=== PATIENT | female | born 1985 | race Caucasian/White ===

== ENCOUNTER 2021-12-01 09:26 | Outpatient (REF) | payer OTHER, SELFPAY ==
[2021-12-01 10:10] LABS: MANUAL DIFF FLAG NO
[2021-12-01 10:14] LABS: Basophils Percent Auto 0.6 % (0-2); Eosinophils Absolute Auto 0.1 X10*3/uL (0.0-0.4); Eosinophils Percent Auto 1.9 % (0-4); Hematocrit 38.7 % (37.0-47.0); Hemoglobin 12.7 g/dl (12.0-16.0); Imm Gran Abs Auto 0.01 X10*3/uL (0.00-0.03); Imm Gran Pct Auto 0.2 % (0.0-0.4); Mean Corpuscular HGB Conc 32.8 g/dl (31.0-35.0); Mean Corpuscular Hemoglobin 29.3 pg (27.0-33.0); Mean Corpuscular Volume 89.2 fL (80.0-98.0); Mean Platelet Volume 10.6 fL (9.4-12.3); Monocytes Absolute Auto 0.2 X10*3/uL (0.1-1.2); Monocytes Percent Auto 4.4 % (2-11); Neutrophils Absolute Auto 2.9 x10*3/uL (2.0-8.3); Neutrophils Percent Auto 54.9 % (45-73); Platelet Count 248 X10*3/uL (160-400); Red Blood Count 4.34 X10*6/uL (4.20-5.50); Red Cell Distribution Width 14.1 % (11.0-16.0); White Blood Count 5.2 X10*3/uL (4.8-10.8)
[2021-12-01 10:42] LABS: Alanine Aminotransferase 16 U/L (0-31); Albumin Level 4.3 g/dL (3.5-5.0); Alkaline Phosphatase 58 U/L (39-117); Anion Gap 11 (12-20); Aspartate Amino Transferase 18 U/L (5-31); Bilirubin Total 0.4 mg/dL (0.0-1.0); Blood Urea Nitrogen 23 mg/dL (9-16); Calcium 9.2 mg/dL (8.4-10.2); Carbon Dioxide 26 mmol/L (22-29); Chloride 106 mmol/L (96-108); Cholesterol 153 mg/dL; Estimated Glomerular Filt Rate > 60; Glucose Random 90 mg/dL (60-115); HDL Cholesterol 44 mg/dL; LDL Cholesterol Calculated 92 mg/dl; Potassium 4.3 mmol/L (3.3-5.1); Sodium 139 mmol/L (135-145); Total Protein 6.7 g/dL (6.5-8.0); Triglycerides 85 mg/dL
[2021-12-01 11:03] LABS: Thyroid Stimulating Hormone 1.29 uIU/mL (0.32-4.0)
== END 2021-12-01 09:27 | disposition home or self-care (01) ==
LOC: HO.10HDL 09:26
PROVIDERS: Visit Provider Internal Medicine
DX: Z00.00 Encounter for general adult medical examination without abnormal findings (principal); F32.9 Major depressive disorder, single episode, unspecified; R00.2 Palpitations; Z63.4 Disappearance and death of family member
CPT/HCPCS: 36415; 80053; 80061; 84443; 85025

== ENCOUNTER 2022-01-01 15:27 | Emergency (ER) | payer OTHER, SELFPAY ==
[2022-01-01 16:51] VITALS: BP 117/69; PULSE 66; RESP 16; TEMP 36.9; O2SAT 98; BMI 29.5
--- NOTE | 2022-01-01 16:59 | ECG_ITS ---
Test Reason : dizzyness Blood Pressure : / mmHG Vent. Rate : 072 BPM Atrial Rate : 072 BPM P-R Int : 172 ms QRS Dur : 086 ms QT Int : 370 ms P-R-T Axes : 060 056 026 degrees QTc Int : 405 ms Normal sinus rhythm Normal ECG No previous ECGs available Referred By: Generic ED Physician Electronically Signed By:Kilo Garcia
== END 2022-01-01 19:26 | disposition left against medical advice (07) ==
PROVIDERS: Emergency Provider Emergency Medicine
DX: R42 Dizziness and giddiness (principal); R00.2 Palpitations
CPT/HCPCS: 93005; 99283

== ENCOUNTER 2023-01-05 18:03 | Emergency (ER) | payer OTHER, SELFPAY ==
--- NOTE | 2023-01-05 18:57 | ED_ITS ---
HPI - General Adult General Chief complaint: Extremity Injury, Upper Stated complaint: ?High blood pressure Time Seen by Provider: 01/05/23 19:03 Source: patient Mode of arrival: ambulatory Limitations: no limitations History of Present Illness HPI narrative: Patient is a 37 year old assigned female at with no reported medical history presenting to the emergency department today with left sided neck pain and concern for elevated blood pressure. Patient states that she woke up this morning with left sided neck pain that is worse with movement and feels as though it is radiating down into her left shoulder. Patient states that she took her blood pressure while home and felt like it was high. Patient denies any dizziness, lightheadedness, abdominal pain, nausea, vomiting, fever, chills, blurry vision, double vision, loss of vision, chest pain, difficulty breathing, shortness of breath, back pain, night sweats, pain with urination, increased urinary frequency, increased urinary urgency, blood in her urine or stool, syncope or a near syncopal episode, recent trauma or falls, bowel incontinence, bladder incontinence, bowel retention, bladder retention, or any other complaints at this time. Location: neck Severity: mild Severity scale (1-10): 3 Quality: aching and dull Pain Consistency: constant Relieving factors: immobilization Exacerbating factors: movement Associated symptoms: denies other symptoms Treatments prior to arrival: none Related Data Allergies Allergy/AdvReac Type Severity Reaction Status Date / Time diphenhydramine Allergy Rash Verified 01/05/23 19:01 [From Benadryl] Review of Systems Constitutional: Constitutional: Reports no additional constitutional complaints, Denies chills, Denies fever(s) and Denies night sweats Eyes: Eyes: Reports no additional eye complaints, Denies blurry vision, Denies change in vision, Denies diplopia, Denies eye discharge, Denies loss of vision and Denies eye pain ENT: Denies dizziness and Reports neck pain Cardiovascular: Cardiovascular: Reports no additional cardiovascular complaints, Denies chest pain, Denies lightheadedness, Denies Loss of Consciousness and Denies dyspnea Respiratory: Respiratory: Reports no additional respiratory complaints and Denies dyspnea Gastrointestinal: Gastrointestinal: Reports no additional gastrointestinal complaints, Denies abdominal pain, Denies melena, Denies hematochezia, Denies change in bowel habits and Denies change in stool character Genitourinary: Genitourinary: Denies hematuria, Denies urinary frequency, Denies dysuria, Denies urinary incontinence, Denies urinary hesitancy and Denies urinary urgency Musculoskeletal: Musculoskeletal: Reports no additional musculoskeletal complaints, Reports neck pain, Denies numbness and Denies tingling Neurologic: Denies dizziness, Denies loss of vision, Denies numbness and Denies tingling Psychiatric: Psychiatric: Reports no additional psychiatric complaints Endocrine: Endocrine: Reports no additional endocrine complaints Hematologic/Lymphatic: Hematologic/Lymphatic: Reports no additional hematologic/lymphatic complaints Allergic/Immunologic: Allergic/Immunologic: Reports no additional allergic/immunologic complaints PMFSH Past Medical History Attestation statement: The following information was validated with the patient. Source: old records reviewed and nursing notes reviewed Social History Social History Advance Directives: No Advance Directives Information Provided: No Physical Exam ED Vital Signs: BMI result Body Mass Index 31.1 Const General: cooperative, no acute distress, alert and awake Nutritional Appearance: well nourished Orientation/consciousness: patient oriented x3 Limitations: no limitations HENMT Head: Yes normal to inspection and Yes atraumatic Ears: hearing grossly normal bilaterally and external ears normal General nose exam: Normal external nose present, no nasal discharge noted and no epistaxis Face and sinus: Yes normal facial exam, No abrasion and No laceration Mouth: Normal oral and palatal mucosa present, no drooling and no muffled voice Eyes General: appearance normal, both eyes and all related structures Periorbital: periorbital findings normal Eyelids: Yes eyelids normal Conjunctivae: conjunctivae normal Pupils: Equal, round and reactive pupils present EOM: EOMs intact bilaterally Neck Neck: Yes normal visual inspection, Yes full ROM and Yes no lymphadenopathy Chest Chest palpation & inspection: normal inspection of the chest Resp Effort & Inspection: normal respiratory effort and able to speak in complete sentences GI Inspection: Yes normal to inspection General: Yes no CVA tenderness Back/Spine/Pelvis Back: no CVA tenderness Cervical Spine: normal cervical lordosis and cervical ROM normal Thoracic/Lumbar Spine: thoraco-lumbar ROM normal Neuro General: patient oriented x3 and moves all extremities Cranial nerves: Yes Equal, round and reactive pupils present Cognition (Neuro): normal cognition Motor exam (neuro): 5/5 motor strength present throughout Sensory Exam: Normal double simultaneous stimulation for sensation Coordination: [id number] test normal Extrem General: Yes normal to inspection, Yes full ROM and Yes capillary refill normal Psych Appearance: grossly normal Mental Status: mental status grossly normal Affect: normal affect Attitude: cooperative Thought process: Normal thought process present Thought content: Normal thought content present Insight: Good insight present (Psych) Medical Decision Making Medical Decision Making MDM Narrative: Patient is a 37 year old assigned female at with no reported medical history presenting to the emergency department today with left neck pain and concern over her blood pressure. Patient's physical exam was unremarkable. Patient's blood pressure was normal. Patient's clinical presentation is most consistent with cervical radiculopathy. I explained my physical exam findings to the patient. I answered all questions asked by the patient. I offered the patient muscle relaxers and steroids however, she declined both of these things. I stressed the importance of the patient taking her medication as prescribed. I stressed the importance of the patient following up with her primary care provider. I stressed the importance of the patient returning to the emergency department immediately if her symptoms were to worsen or if she were to develop any dizziness, shortness of breath, difficulty breathing, chest pain, blurry vision, loss of vision, nausea, vomiting, abdominal pain, fever, chills, back pain, or any other complaints. Patient verbalized agreement and understanding with this treatment plan and discharge. Differential Diagnosis Differential Diagnoses: The differential diagnosis associated with the presentation includes Cervical radiculopathy Neck strain Neck sprain Neck pain Hypertension Prescription Management I considered prescription management with: Pain Medication (patient was offered a muscle relaxer and an oral steroid but she declined both of these.) Discharge Plan Discharge Clinical Impression: Cervical radiculopathy Patient Disposition: Home, Self-Care Instructions: Cervical Radiculopathy (ED) Additional Instructions: Follow up with your primary care provider. Return to the emergency department immediately if your symptoms worsen or if you develop any dizziness, shortness of breath, difficulty breathing, chest pain, blurry vision, loss of vision, nausea, vomiting, abdominal pain, fever, chills, back pain, or any other complaints. Referrals: Robyn Rivero MD [Primary Care Provider] - Interventions: ED Discharge Assessment Last Done: 01/05/23 19:06 Discharge Date/Time: 01/05/23 19:06 Print Language: [place]
[2023-01-05 18:58] VITALS: BP 120/74; PULSE 67; RESP 16; TEMP 36.3; O2SAT 99; BMI 31.1
== END 2023-01-05 19:06 | disposition home or self-care (01) ==
LOC: HO.ED 19:07
PROVIDERS: Emergency Provider Emergency Medicine; PCP Internal Medicine
DX: M54.12 Radiculopathy, cervical region (principal)
CPT/HCPCS: 99282

== ENCOUNTER 2023-01-09 15:02 | Outpatient (REF) | payer OTHER, SELFPAY ==
[2023-01-09 15:15] LABS: MANUAL DIFF FLAG NO
[2023-01-09 15:41] LABS: Basophils Percent Auto 0.5 % (0-2); Eosinophils Absolute Auto 0.2 X10*3/uL (0.0-0.4); Eosinophils Percent Auto 2.1 % (0-4); Hematocrit 37.5 % (37.0-47.0); Hemoglobin 12.5 g/dl (12.0-16.0); Imm Gran Abs Auto 0.02 X10*3/uL (0.00-0.03); Imm Gran Pct Auto 0.3 % (0.0-0.4); Lymphocytes Absolute Auto 2.6 X10*3/uL (1.2-4.9); Lymphocytes Percent Auto 33.1 % (20-40); Mean Corpuscular HGB Conc 33.3 g/dl (31.0-35.0); Mean Corpuscular Hemoglobin 28.9 pg (27.0-33.0); Mean Corpuscular Volume 86.8 fL (80.0-98.0); Mean Platelet Volume 10.2 fL (9.4-12.3); Monocytes Absolute Auto 0.3 X10*3/uL (0.1-1.2); Monocytes Percent Auto 4.3 % (2-11); Neutrophils Absolute Auto 4.7 x10*3/uL (2.0-8.3); Neutrophils Percent Auto 59.7 % (45-73); Platelet Count 280 X10*3/uL (160-400); Red Blood Count 4.32 X10*6/uL (4.20-5.50); Red Cell Distribution Width 13.6 % (11.0-16.0); White Blood Count 7.9 X10*3/uL (4.8-10.8)
[2023-01-09 17:15] LABS: Thyroid Stimulating Hormone 1.46 uIU/mL (0.32-4.0)
[2023-01-16 10:38] LABS: Anti Nuclear Antibody Screen NEGATIVE (NEGATIVE)
== END 2023-01-09 15:03 | disposition home or self-care (01) ==
LOC: HO.LAB 15:02
PROVIDERS: PCP Internal Medicine; Visit Provider Internal Medicine
DX: J45.909 Unspecified asthma, uncomplicated (principal); L30.8 Other specified dermatitis; L50.5 Cholinergic urticaria; L63.8 Other alopecia areata
CPT/HCPCS: 36415; 84443; 85025; 86038

== ENCOUNTER 2023-03-01 07:16 | Emergency (ER) | payer OTHER, SELFPAY ==
[2023-03-01 07:21] VITALS: BP 136/78; PULSE 78; RESP 19; TEMP 36.6; O2SAT 97; BMI 32.7
--- NOTE | 2023-03-01 08:42 | ED_ITS ---
HPI - URI/Sore Throat General Chief Complaint: Upper Respiratory Symptoms Stated Complaint: asthma / sob Time Seen by Provider: 03/01/23 08:30 Source: patient Mode of arrival: ambulatory Limitations: no limitations History of Present Illness HPI Narrative: 37-year-old female with history significant for asthma presenting to the ED today for productive cough, SOB, and wheezing x3 days. Has been taking Claritin and doing nebulizer treatments at home without relief, last treatment 6 hours ago. States this feels similar to an asthma exacerbation. Has tested negative for COVID at home twice. reports her children have also been sick. denies fever, chills, headache, ear pain, sore throat, chest pain, nausea/ vomiting, abdominal pain. Related Data Previous Rx's Medication Instructions Recorded prednisone 50 mg tablet 50 mg PO DAILY 5 days #5 tabs 03/01/23 Allergies Allergy/AdvReac Type Severity Reaction Status Date / Time diphenhydramine Allergy Rash Verified 03/01/23 07:21 [From Benadryl] fosphenytoin Allergy Unknown Verified 03/01/23 07:29 Review of Systems Review of Systems: Constitutional: No fever, No chills, No fatigue, No malaise ENT/Mouth: No ear pain, No hearing loss, No nasal congestion, No sinus pain, No rhinorrhea, No sore throat Eyes: No eye pain, No swelling, No redness, No vision changes, No foreign body, No discharge Cardio: No chest pain, No palpitations, No dyspnea on exertion, No orthopnea, No edema Respiratory: + SOB, + cough, + sputum, + wheezing, No dyspnea, No hemoptysis GI: No nausea, No vomiting, No hematemesis, No abdominal pain, No diarrhea, No constipation, No hematochezia, No melena : No irregular bleeding, No dysuria, No frequency, No urgency MSK: No back pain, No neck pain, No joint pain, No myalgias Skin: No skin lesions, No rashes Neuro: No weakness, No numbness, No paresthesias, No LOC, No dizziness, No headache Psych: No anxiety/panic, No depression, No SI/HI, No AH/VH Heme/Lymph: No bruising, No bleeding, No lymphadenopathy Endocrine: No Polyuria, No Polydipsia, No Temperature Intolerance All other systems reviewed and are negative. [facility] Past Medical History Attestation statement: The following information was validated with the patient. Source: old records reviewed and nursing notes reviewed Social History Social History Advance Directives: No Physical Exam Vital Signs: Vital Signs: Last Vital Signs Temp 98 F 03/01/23 07:21 Pulse 77 03/01/23 09:46 Resp 18 03/01/23 09:46 BP 136/78 03/01/23 07:21 Pulse Ox 97 03/01/23 07:21 O2 Del Method Room Air 03/01/23 07:21 BMI result Body Mass Index 32.7 Vital signs stable General: Nontoxic appearing. NAD Skin: Warm and dry. No rashes or lesions. Head: Normocephalic, atraumatic. EENT: EAC patent. Hearing is intact b/l. Conjunctiva clear. PERRLA. EOM intact. Moist mucous membranes. Controlling secretions. Uvula midline. posterior oropharynx without erythema, edema, exudate. Speaking in complete sentences. Neck: Supple without LAD. Normal ROM. Trachea midline. Cardiac: Chest wall symmetric. RRR. S1 and S1 appreciated. No MRG. No JVD. Lungs: Expiratory wheezes bilaterally, R>L. Normal respiratory effort without accessory muscle use. Abdomen: No visible lesions or scars. Soft, non-tender, non-distended. No rebound tenderness or guarding. Normoactive BS x4. No hepatomegaly, no splenomegaly. Spine: No midline spinous tenderness. No deformity or step off. Ext: Upper and lower extremities atraumatic. Full ROM throughout.Capillary refill <2 seconds in all extremities. Pulses 2+ equal b/l. No edema, cyanosis, or clubbing. Neuro: Alert and oriented x3. Normal speech. CN 2-12 grossly intact. Strength 5/5 intact throughout. Sensation intact to light touch. NV intact distally. Reflexes 2+ bilaterally. Psych: Appropriate mood and affect. Responds appropriately to questions. Course Course Course Narrative: 5993-- The patient states minimal resolution of symptoms with albuterol treatment per RT bronch protocol. Mag and solumedrol ordered > will re-evaluate symptoms > Patient's serology negative for COVID, flu, strep throat, RSV > Unlikely infectious in etiology, likely acute asthma exacerbation. 1053-- On re-evaluation patients breathing improved with Solu-Medrol and magnesium. States that she would like to go home. Her vital signs are still stable. Lungs with minimal wheezes to the right base, improved. Otherwise clear to auscultation. Discussed sending patient home on steroids. Patient agreeable to plan. Discussed strict return precautions. All questions answered. Stable for discharge. Medications Administered Discontinued Medications Generic Name Dose Route Start Last Admin Trade Name Mioq PRN Reason Stop Dose Admin Albuterol Sulfate 2.5 mg 03/01/23 08:52 03/01/23 08:55 Albuterol Sulfate (0.083%) 2.5 Mg/3 Ml Vial.Neb INHALE 03/01/23 08:53 2.5 mg ONCE ONE Administration Albuterol Sulfate 2.5 mg 03/01/23 09:44 03/01/23 09:45 Albuterol Sulfate (0.083%) 2.5 Mg/3 Ml Vial.Neb INHALE 03/01/23 09:45 2.5 mg ONCE ONE Administration Magnesium Sulfate 2 gm in 50 mls @ 25 mls/hr 03/01/23 09:45 03/01/23 10:26 Magnesium Sulfate/H2o IV 03/01/23 11:44 Infused ONCE ONE Infusion Methylprednisolone Sodium Succinate 125 mg 03/01/23 09:45 03/01/23 10:09 Methylprednisolone Sod Succ 125 Mg/2 Ml Vial IVPUSH 03/01/23 09:46 125 mg ONCE ONE Administration Medical Decision Making Medical Decision Making MDM Narrative: 37-year-old female with history significant for asthma presenting to the ED today for productive cough and wheezing x3 days. vital signs stable. Afebrile. EAC clear. Moist mucous membranes. no lymphadenopathy. Posterior oropharynx without erythema, edema, exudates. Controlling secretions. Speaking in full se ntences. Lungs with expiratory wheezes, R>L. RRR. Concern for asthma exacerbation vs viral syndrome. Unlikely pneumonia, pneumothorax, strep throat, PLANISHER, epiglotitis or retropharyngeal abscess. Plan: albuterol tx, serology Differential Diagnosis Differential Diagnoses: The differential diagnosis associated with the presentation includes 37-year-old female with history significant for asthma presenting to the ED today for productive cough and wheezing x3 days. vital signs stable. Afebrile. EAC clear. Moist mucous membranes. no lymphadenopathy. Posterior oropharynx without erythema, edema, exudates. Controlling secretions. Speaking in full sentences. Lungs with expiratory wheezes, R>L. RRR. Concern for asthma exa cerbation vs viral syndrome. Unlikely pneumonia, pneumothorax, strep throat, PLANISHER, epiglotitis or retropharyngeal abscess. Admission/Observation Not indicated. Lab Data MDM Lab Attestation statement: I reviewed the patient's lab results. See above course narrative. Labs: Lab Results 03/01/23 Range/Units 09:03 Influenza Type A (PCR) NEGATIVE (Negative) Influenza Type B (PCR) NEGATIVE (Negative) RSV RNA Qual (PCR) NEGATIVE (Negative) SARS-CoV-2 RNA (RT-PCR) NEGATIVE (Negative) S. pyogenes GrpA JONG Negative (Negative) External Record Review External record reviewed: Inpatient record Prescription Management I considered prescription management with: Other ( steroid) Chronic Conditions Patient?s care impacted by: Other (asthma) Discharge Plan Discharge Clinical Impression: Asthma Patient Disposition: Home, Self-Care Instructions: Asthma (ED) Additional Instructions: You tested negative for COVID, flu, RSV, and strep throat. This is likely an asthma exacerbation. I am sending you home with a short dose of steroids. take this as prescribed for your asthma. Do not miss any doses. Return to the emergency department if your symptoms persist or worsen. Follow-up with your primary care provider this week. Prescriptions: New prednisone 50 mg tablet 50 mg PO DAILY 5 Days Qty: 5 0RF Referrals: [facility] [place] Family Medicine [Provider Group] Stand Alone Forms: Work/School Release Interventions: ED Discharge Assessment Last Done: 03/01/23 11:11 Discharge Date/Time: 03/01/23 11:11
[2023-03-01] MEDS: Albuterol Sulfate (0.083%) 2.5 MG/3 ML VIAL.NEB INHALE ×2 (08:55→09:45)
[2023-03-01 08:56] VITALS: PULSE 78; RESP 18; O2SAT 98
[2023-03-01 09:21] LABS: IDNOW Serial# 6674DD1D; Strep A Nucleic Acid Negative (Negative)
[2023-03-01 09:46] VITALS: PULSE 77; RESP 18; O2SAT 97
[2023-03-01 09:46] LABS: Influenza A PCR NEGATIVE (Negative); Influenza B PCR NEGATIVE (Negative); Resp Syncy Virus RNA Qual PCR NEGATIVE (Negative); SARS COV2 PCR INHOUSE NEGATIVE (Negative)
[2023-03-01] MEDS: Magnesium Sulfate/H2O 2 GM/50 ML PIGGYBACK IV (10:08)
[2023-03-01] MEDS: methylPREDNISolone Sod Succ 125 MG/2 ML VIAL IVPUSH (10:09)
== END 2023-03-01 11:11 | disposition home or self-care (01) ==
PROVIDERS: Physician Assistant Medical; Emergency Provider Emergency Medicine; PCP Internal Medicine
DX: J45.909 Unspecified asthma, uncomplicated (principal); Z20.822 Contact with and (suspected) exposure to COVID-19; Z20.828 Contact with and (suspected) exposure to other viral communicable diseases; R06.02 Shortness of breath
CPT/HCPCS: 0241U; 87651; 94640; 96365; 96375; 99283; 99284; J2930; J3475

== ENCOUNTER 2023-03-02 12:46 | Emergency (ER) | payer OTHER, SELFPAY ==
--- NOTE | ~2023-03-02 | US_ITS ---
EXAMINATION: US VENOUS ULTRASOUND WITH DOPPLER LOWER EXTREMITY, BILATERAL CLINICAL INFORMATION: Bilateral lower extremity swelling COMPARISON: None available. TECHNIQUE: Ultrasound of the deep veins is performed from the hip to the calf with compression sonography and color and pulse Doppler assessment. Spectral analysis with color-flow imaging is performed. FINDINGS: RIGHT: There is normal venous compression and respiratory variation and augmented flow. The visualized common femoral, superficial femoral,, profunda femoral, popliteal, trifurcation region and calf veins show no evidence of deep venous thrombosis. There is no significant popliteal fossa cyst. LEFT: There is normal venous compression and respiratory variation and augmented flow. The visualized common femoral, superficial femoral, profunda femoral, popliteal, the trifurcation region, peroneal and posterior tibial veins show no evidence of deep venous thrombosis. There is no significant popliteal fossa cyst. If the patient's symptoms persist, followup ultrasound in 5 days 7 days might be of value to exclude proximal propagation from a non-visualized calf vein. US/US venous duplex LE BI IMPRESSION: No DVT demonstrated in the bilateral lower extremities.
[2023-03-02 12:51] VITALS: BP 128/70; PULSE 81; RESP 16; TEMP 36.6; O2SAT 97; BMI 33.1
--- NOTE | 2023-03-02 12:54 | ED.GENADULT ---
HPI - General Adult General Chief complaint: Extremity Problem Stated complaint: sent back to the ER/ seen yesterday Time Seen by Provider: 03/02/23 15:15 Source: patient Mode of arrival: ambulatory Limitations: no limitations History of Present Illness HPI narrative: 37 yold female presents to the ED bilateral leg swelling that occurred this mornign and improving on her own. patient was told to come to the ED for evaliation. patient was seen here yesterday for asthma. patient deneis any chest pain or shorntess of breath. patient states no recent trauma, fever, or chills. Patient denies any pleurisy, recent long travel, or recent surgery. Related Data Previous Rx's Medication Instructions Recorded prednisone 50 mg tablet 50 mg PO DAILY 5 days #5 tabs 03/01/23 Allergies Allergy/AdvReac Type Severity Reaction Status Date / Time diphenhydramine Allergy Rash Verified 03/01/23 07:21 [From Benadryl] fosphenytoin Allergy Unknown Verified 03/01/23 07:29 [facility] Social History Social History Advance Directives: No Advance Directives Information Provided: No Physical Exam ED Vital Signs: Vital Signs - 24 hr 03/02/23 12:51 Temperature 97.9 F Pulse Rate 81 Respiratory Rate 16 Blood Pressure 128/70 Pulse Oximetry 97 Oxygen Delivery Method Room Air BMI result Body Mass Index 33.1 Const General: cooperative, healthy appearing, comfortable, no acute distress, well developed, alert and awake Orientation/consciousness: oriented to person, oriented to place, oriented to time and patient oriented x3 HENMT Head: Yes normal to inspection, Yes No palpable skull fracture present, Yes normocephalic, Yes atraumatic and No abrasion Eyes General: appearance normal, both eyes and all related structures Neck Neck: Yes normal visual inspection, Yes full ROM, Yes no lymphadenopathy, Yes no meningeal signs, Yes trachea midline, Yes supple, No anterior neck swelling and No tender Chest Chest palpation & inspection: normal inspection of the chest and normal palpation of entire chest wall Resp Effort & Inspection: normal respiratory effort and able to speak in complete sentences Auscultation: clear to auscultation bilaterally Cardio Jugular venous distension: no JVD Heart sounds: S1 normal heart sound present and S2 normal heart sound present GI Inspection: Yes normal to inspection and No abdominal wall ecchymosis Palpation (GI): Soft to palpation, not firm, nontender, no guarding and not rigid General: No CVA tenderness and Yes no CVA tenderness Back/Spine/Pelvis Back: no CVA tenderness, No CVA tenderness and No back tenderness Skin Other: intact General skin exam: no rashes or lesions noted and elasticity normal Neuro General: oriented to person, oriented to place, oriented to time, patient oriented x3, gait normal, tone normal, moves all extremities, Normal light touch and pain sensation, no meningeal signs, no focal motor deficits, CN's II-XI intact bilaterally and normal sensation to monofilament Extrem Other: bilateral lower extremities negative for swelling, or calf tenderness. Positive for mild pitting edema. Negative for ecchymosis, crepitus, or deformities. Negative for erythema. Vascular / Neuro/motor exam intact. Psych Appearance: grossly normal, well kempt and not disheveled Course Course Course Narrative: This is a rapid medical exam: Additional HPI, ROS, PE not included below will be deferred to primary provider. Patient is a 37-year-old female presenting to the emergency department with complaint of bilateral leg pain and swelling after being seen in this ED yesterday for an asthma exacerbation. Received two albuterol treatments as well as solu-medrol and magnesium in the ED. [place] tired upon returning home. States she received a call from someone in the follow up center this morning and was told to return to the ED given her ongoing leg pain and swelling. Plan: labs Medical Decision Making Medical Decision Making [facility] Narrative: 37-year-old female presents to ED for bilateral lower extremity swelling that resolved on its own. Patient denies any chest pain, shortness of breath, pleurisy, recent long travel, recent surgery, recent trauma, cough or coughing up blood. labs normal. BNP negative for heart failure. Ultrasound bilaterally negative for DVT. Patient is safe for discharge Differential Diagnosis Differential Diagnoses: The differential diagnosis associated with the presentation includes ( CHF, cellulitis, DVT, erythema nodosum, fracture, carpal tunnel syndrome) Admission/Observation Consideration of admission/observation: Escalation of care including admission/observation considered Lab Data [facility] Lab Attestation statement: I reviewed the patient's lab results. 03/02/23 13:59 03/02/23 13:59 Labs: Lab Results 03/02/23 Range/Units 13:59 WBC 9.7 (4.8-10.8) X10*3/uL RBC 4.18 L (4.20-5.50) X10*6/uL Hgb 12.2 (12.0-16.0) g/dl Hct 35.9 L (37.0-47.0) % MCV 85.9 (80.0-98.0) fL MCH 29.2 (27.0-33.0) pg MCHC 34.0 (31.0-35.0) g/dl RDW 13.7 (11.0-16.0) % Plt Count 266 (160-400) X10*3/uL MPV 10.0 (9.4-12.3) fL Immature Gran % (Auto) 0.3 (0.0-0.4) % Neut % (Auto) 90.6 H (45-73) % Lymph % (Auto) 8.4 L (20-40) % [place] % (Auto) 0.6 L (2-11) % Eos % (Auto) 0.0 (0-4) % Baso % (Auto) 0.1 (0-2) % Lymph # (Auto) 0.8 L (1.2-4.9) X10*3/uL [place] # (Auto) 0.1 (0.1-1.2) X10*3/uL Eos # (Auto) 0.0 (0.0-0.4) X10*3/uL Baso # (Auto) 0.0 (0.0-0.2) X10*3/uL Abs Immat Gran (auto) 0.03 (0.00-0.03) X10*3/uL Absolute Neuts (auto) 8.8 H (2.0-8.3) x10*3/uL Absolute Nucleated RBC 0.000 (0.0-0.012) X10*3/uL Nucleated RBC % (auto) 0.0 (0.0-0.2) /100WBC Smear Tech's Comments VERIFIED Sodium 139 (135-145) mmol/L Potassium 4.3 (3.3-5.1) mmol/L Chloride 107 (96-108) mmol/L Carbon Dioxide 25 (22-29) mmol/L Anion Gap 11 L (12-20) BUN 16 (9-16) mg/dL Creatinine 0.72 (0.5-1.4) mg/dL Estim Creat Clear Calc 104.2 Estimated GFR > 60 Random Glucose 104 (60-115) mg/dL Calcium 9.7 (8.4-10.2) mg/dL Total Bilirubin 0.2 (0.0-1.0) mg/dL AST 28 (5-31) U/L ALT 28 (0-31) U/L Alkaline Phosphatase 67 (39-117) U/L B-Natriuretic Peptide 48 (<100) pg/mL Total Protein 7.3 (6.5-8.0) g/dL Albumin 4.4 (3.5-5.0) g/dL Independent Interpretation I performed an independent interpretation of an: Ultrasound Radiology Impression Discussion of test interpretation with radiology: I have reviewed the radiologist's reading. External Record Review External record reviewed: Other (Prior ED visit) Tests considered The following testing was considered but not selected: xrays Discharge Plan Discharge Clinical Impression: Lower extremity edema Patient Disposition: Home, Self-Care Instructions: Leg Edema (ED) Additional Instructions: please follow-up with your primary care provider. Return to the ED immediately for swelling, calf pain, chest pain, shortness of breath, weakness, dizziness, coughing up blood, fever, chills, redness, blue spot discoloration, or any other concerning symptoms. Prescriptions: No Action prednisone 50 mg tablet 50 mg PO DAILY 5 Days Qty: 5 0RF Interventions: ED Discharge Assessment Last Done: 03/02/23 16:51 Discharge Date/Time: 03/02/23 16:51 Print Language: Spanish
[2023-03-02 14:15] LABS: Basophils Percent Auto 0.1 % (0-2); Hematocrit 35.9 % (37.0-47.0); Hemoglobin 12.2 g/dl (12.0-16.0); Imm Gran Abs Auto 0.03 X10*3/uL (0.00-0.03); Imm Gran Pct Auto 0.3 % (0.0-0.4); Lymphocytes Absolute Auto 0.8 X10*3/uL (1.2-4.9); Lymphocytes Percent Auto 8.4 % (20-40); MANUAL DIFF FLAG SCAN; Mean Corpuscular Hemoglobin 29.2 pg (27.0-33.0); Mean Corpuscular Volume 85.9 fL (80.0-98.0); Monocytes Absolute Auto 0.1 X10*3/uL (0.1-1.2); Monocytes Percent Auto 0.6 % (2-11); Neutrophils Absolute Auto 8.8 x10*3/uL (2.0-8.3); Neutrophils Percent Auto 90.6 % (45-73); Platelet Count 266 X10*3/uL (160-400); Red Blood Count 4.18 X10*6/uL (4.20-5.50); Red Cell Distribution Width 13.7 % (11.0-16.0); SCAN SMEAR FLAG 1; White Blood Count 9.7 X10*3/uL (4.8-10.8)
[2023-03-02 14:31] LABS: Alanine Aminotransferase 28 U/L (0-31); Albumin Level 4.4 g/dL (3.5-5.0); Alkaline Phosphatase 67 U/L (39-117); Anion Gap 11 (12-20); Aspartate Amino Transferase 28 U/L (5-31); Bilirubin Total 0.2 mg/dL (0.0-1.0); Blood Urea Nitrogen 16 mg/dL (9-16); Calcium 9.7 mg/dL (8.4-10.2); Carbon Dioxide 25 mmol/L (22-29); Chloride 107 mmol/L (96-108); Creatinine Clr Calc Pharmacy 104.2; Estimated Glomerular Filt Rate > 60; Glucose Random 104 mg/dL (60-115); Potassium 4.3 mmol/L (3.3-5.1); Sodium 139 mmol/L (135-145); Total Protein 7.3 g/dL (6.5-8.0)
[2023-03-02 14:40] LABS: SLIDE REVIEW VERIFIED
[2023-03-02 16:10] LABS: B Type Natriuretic Peptide 48 pg/mL (<100)
[2023-03-02 16:39] VITALS: BP 128/76; PULSE 74; RESP 18; TEMP 36.6; O2SAT 98
== END 2023-03-02 16:51 | disposition home or self-care (01) ==
PROVIDERS: Physician Assistant; Registered Nurse Emergency; Emergency Provider Emergency Medicine Emergency Medical Services; PCP Internal Medicine
DX: R60.0 Localized edema (principal); M79.605 Pain in left leg; M79.604 Pain in right leg
CPT/HCPCS: 36415; 80053; 83880; 85025; 93970; 99282; 99284

== ENCOUNTER 2023-06-22 16:36 | Emergency (ER) | payer OTHER, SELFPAY ==
[2023-06-22 17:11] VITALS: BP 145/90; PULSE 84; RESP 18; TEMP 37.3; O2SAT 99; BMI 31.1
--- NOTE | 2023-06-22 17:13 | ED.GENADULT ---
HPI - General Adult General Chief complaint: Extremity Injury, Upper Stated complaint: Muscle spasm on L arm Time Seen by Provider: 06/22/23 19:21 Source: patient, RN notes reviewed and old records reviewed Mode of arrival: ambulatory Limitations: no limitations History of Present Illness HPI narrative: 38-year-old female presents for evaluation of left posterior shoulder pain that radiates to her left arm She describes this as ?muscle spasms. ? Her symptoms started about 1 week ago She denies any specific trauma or heavy lifting/twisting injury that would have incited pain Patient states that she saw her PCP 3 days ago and was given a prescription for cyclobenzaprine for ?muscle spasms. ? She states that when she takes cyclobenzaprine 10 mg before bed ?I feel out of it and sometimes more awake at 3:00 a.m.. ? Patient reports that she gets twitching and spasms into her left upper arm as well as her left trapezius area Denies any headaches. She states that she initially had neck pain but no longer has neck pain She reports that she has full range of motion of the neck Patient reports that she sleeps with 3 pillows at night Related Data Previous Rx's Medication Instructions Recorded prednisone 50 mg tablet 50 mg PO DAILY 5 days #5 tabs 03/01/23 lidocaine 5 % topical patch 1 patch topical DAILY #15 ea 06/22/23 (DermacinRx Lidocan) Allergies Allergy/AdvReac Type Severity Reaction Status Date / Time diphenhydramine Allergy Rash Verified 06/22/23 17:11 [From Benadryl] fosphenytoin Allergy Unknown Verified 06/22/23 17:11 Review of Systems Constitutional: Constitutional: Denies chills and Denies headache(s) ENT: Denies headache(s) and Denies neck pain Cardiovascular: Cardiovascular: Denies chest pain Musculoskeletal: Musculoskeletal: Reports limited range of motion, Reports muscle cramps, Denies neck pain, Reports numbness, Reports radiating pain into limb and Reports stiffness Neurologic: Denies headache(s) and Reports numbness PMFSH Social History Social History Advance Directives: No Advance Directives Information Provided: No Physical Exam ED Vital Signs: Vital Signs - 24 hr 06/22/23 17:11 06/22/23 19:41 Temperature 99.1 F Pulse Rate 84 58 Respiratory Rate 18 14 Blood Pressure 145/90 H 110/71 Pulse Oximetry 99 99 Oxygen Delivery Method Room Air Room Air BMI result Body Mass Index 31.1 Const General: healthy appearing, comfortable, no acute distress, alert and awake Nutritional Appearance: well nourished Orientation/consciousness: patient oriented x3 HENMT Head: Yes normocephalic and Yes atraumatic Eyes Eyelids: Yes eyelids normal Conjunctivae: conjunctivae normal Sclerae: sclerae normal Corneas: corneas normal Pupils: Equal, round and reactive pupils present EOM: EOMs intact bilaterally Neck Neck: Yes full ROM Resp Effort & Inspection: normal respiratory effort, no audible wheezes and not labored Back/Spine/Pelvis Other: No C-spine tenderness or paraspinous muscle tenderness. Skin General skin exam: elasticity normal Neuro General: patient oriented x3 Cranial nerves: Yes Equal, round and reactive pupils present and Yes Bilaterally intact EOM present Cognition (Neuro): normal cognition Extrem Other: Patient has tenderness over the left trapezius muscle group without any obvious deformities. She has full range of motion left shoulder actively. She is able to left the left upper extremity up to shoulder level without any difficulty. Course Course Course Narrative: This is an RME: Additional HPI, ROS, PE not included below will be deferred to primary provider. 38-year-old female presents with atraumatic left upper extremity pain, reports intermittent swelling to left upper extremity. PCP prescribed muscle relaxers and had her referred to a chiropractor. No chest pain or shortness of breath. Medications Administered Discontinued Medications Generic Name Dose Route Start Last Admin Trade Name Mioq PRN Reason Stop Dose Admin Ketorolac Tromethamine 30 mg 06/22/23 17:14 06/22/23 19:32 Ketorolac Tromethamine 30 Mg/Ml Vial IM 06/22/23 17:15 30 mg ONCE ONE Administration Lidocaine 1 patch 06/22/23 17:14 06/22/23 19:31 Lidocaine 4 % Patch Adh..Patch TRANSDERMA 06/22/23 17:15 1 patch ONCE ONE Administration Protocol Medical Decision Making Medical Decision Making MDM Narrative: 38-year-old female presents for evaluation of ?muscle spasms. ? Her exam is reassuring, she has slow range of motion to left shoulder. She does have some tenderness the left trapezius muscle group and left triceps area. She has no headache, neck pain, no neuro deficits. Will treat symptomatically with lidocaine patches. She was encouraged to attempt to try to reduce the amount of pillows she has that night as this may be the cause of her muscle spasms. I also recommend that she can try the cyclobenzaprine by cutting the pills in half to 5 mg before bed Differential Diagnosis Differential Diagnoses: The differential diagnosis associated with the presentation includes Muscle spasms Cervical radiculopathy Spasmodic torticollis Shoulder pain Osteoarthritis Rotator cuff injury Discharge Plan Discharge Clinical Impression: Spasmodic torticollis Patient Disposition: Home, Self-Care Instructions: Spasmodic Torticollis (ED) Additional Instructions: I recommend that you try to reduce the amount of pillows use at night as this may put your neck and awkward position bleeding to muscle spasms You may try cutting the cyclobenzaprine in half to take only 5 mg before bed Continue to use ibuprofen as needed for pain. You may use lidocaine patches before bed Do not put heating pads over any medicated patches Follow-up with your primary doctor Prescriptions: New lidocaine [DermacinRx Lidocan] 5 % adhesive patch,medicated 1 patch topical DAILY Qty: 15 0RF Rx Instructions: leave on most painful area for up to 12 hrs No Action prednisone 50 mg tablet 50 mg PO DAILY 5 Days Qty: 5 0RF Interventions: ED Discharge Assessment Last Done: 06/22/23 19:58 Discharge Date/Time: 06/22/23 19:59
[2023-06-22 19:41] VITALS: BP 110/71; PULSE 58; RESP 14; O2SAT 99
== END 2023-06-22 19:59 | disposition home or self-care (01) ==
PROVIDERS: Emergency Provider Emergency Medicine; PCP Internal Medicine
DX: G24.3 Spasmodic torticollis (principal); M79.602 Pain in left arm
CPT/HCPCS: 96372; 99283; 99284; J1885

== ENCOUNTER 2023-07-03 11:40 | Emergency (ER) | payer OTHER, SELFPAY ==
--- NOTE | ~2023-07-03 | XR_ITS ---
EXAMINATION: XR CHEST CLINICAL INFORMATION: Dyspnea. Covid positive. COMPARISON: None available. TECHNIQUE: 2 views of the chest were obtained. FINDINGS: Cardiac silhouette is normal in size. The lungs are well aerated. There is no lobar consolidation. No pleural effusion or pneumothorax. No acute osseous abnormality. XR/XR chest 2V IMPRESSION: No acute pulmonary pathology.
[2023-07-03 11:43] VITALS: BP 122/61; PULSE 88; RESP 16; TEMP 37.1; O2SAT 95; BMI 32.2
--- NOTE | 2023-07-03 11:43 | ED_ITS ---
HPI - General Adult General Chief complaint: Asthma Stated complaint: Trouble breathing, covid positive Time Seen by Provider: 07/03/23 11:53 Source: patient and RN notes reviewed Mode of arrival: ambulatory Limitations: no limitations History of Present Illness HPI narrative: This is a 38-year-old female, with a history of asthma, presenting to the emergency department with complaints of difficulty breathing with dry cough which started yesterday. She states that she took it at home COVID test which was positive. Her family is also positive for COVID. She uses a updraft at her home without any relief. Reporting some fevers MD complaint: Shortness of breath Onset (ago): day(s) Relieving factors: none Exacerbating factors: none Associated symptoms: cough, fever/chills and shortness of breath Treatments prior to arrival: none Related Data Previous Rx's Medication Instructions Recorded prednisone 50 mg tablet 50 mg PO DAILY 5 days #5 tabs 03/01/23 lidocaine 5 % topical patch 1 patch topical DAILY #15 ea 06/22/23 (DermacinRx Lidocan) prednisone 20 mg tablet 40 mg (2 x 20 mg) PO DAILY 4 days 07/03/23 #8 tabs Allergies Allergy/AdvReac Type Severity Reaction Status Date / Time diphenhydramine Allergy Rash Verified 06/22/23 17:11 [From Benadryl] fosphenytoin Allergy Unknown Verified 06/22/23 17:11 Review of Systems Review of Systems: Yes all other systems are reviewed and are negative Constitutional: Constitutional: Reports as per [facility] Social History Social History Advance Directives: No Physical Exam ED Vital Signs: Vital Signs - 24 hr 07/03/23 11:43 07/03/23 12:14 07/03/23 12:53 Temperature 98.8 F Pulse Rate 88 77 104 H Respiratory Rate 16 22 H 18 Blood Pressure 122/61 129/81 Pulse Oximetry 95 99 Oxygen Delivery Method Room Air Room Air BMI result Body Mass Index 32.2 Const General: cooperative, comfortable and no acute distress Orientation/consciousness: patient oriented x3 Limitations: no limitations HENMT Head: Yes normal to inspection, Yes normocephalic and Yes atraumatic Ears: hearing grossly normal bilaterally General nose exam: Normal external nose present Face and sinus: Yes normal facial exam Mouth: Normal oral and palatal mucosa present, oropharynx normal and moist mucous membranes Throat: Yes posterior oropharynx normal Eyes General: appearance normal, both eyes and all related structures Eyelids: Yes eyelids normal Conjunctivae: conjunctivae normal Sclerae: sclerae normal Pupils: Equal, round and reactive pupils present EOM: EOMs intact bilaterally Neck Neck: Yes normal visual inspection, Yes full ROM and Yes no lymphadenopathy Lymphatic: no lymphadenopathy noted Chest Chest palpation & inspection: normal inspection of the chest Resp Other: Coarse inspiratory and expiratory wheezes, worse in the upper lung rashid. Effort & Inspection: normal respiratory effort and able to speak in complete sentences Cardio Rate: regular rate Rhythm: regular rhythm Heart sounds: S1 normal heart sound present and S2 normal heart sound present GI Inspection: Yes normal to inspection Skin General skin exam: no rashes or lesions noted Trauma: no lacerations or abrasions Wounds: no wounds Neuro General: patient oriented x3 and moves all extremities Cranial nerves: Yes Equal, round and reactive pupils present Extrem General: Yes normal to inspection Right upper extremity: normal to inspection Left upper extremity: normal to inspection Right lower extremity: normal to inspection Left lower extremity: normal to inspection Course Course Course Narrative: This is a rapid medical exam: Additional HPI, ROS, PE not included below will be deferred to primary provider. Patient is a 38-year-old female with history of asthma, tested positive for Covid on Sunday, reports worsening dyspnea last night. Used albuterol at home with little relief. Last treatment this morning around 9. Also complains of chest pain with coughing as well as pain to back. Fever to 100.8 yesterday. Plan: CXR, EKG Reevaluation(s) Reevaluation #1: Lung sounds improved after updraft. Feeling well, d/c on prednisone. Given return precautions, pt understands and agrees with plan. Stable for d/c. Medications Administered Discontinued Medications Generic Name Dose Route Start Last Admin Trade Name Adelso PRN Reason Stop Dose Admin Albuterol Sulfate 2.5 mg/ 0 mg 07/03/23 12:07 07/03/23 12:13 Albuterol/Ipratropium 3 ml INHALE 07/03/23 12:08 5 dose ONCE ONE Administration Prednisone 50 mg 07/03/23 12:06 07/03/23 12:53 Prednisone 10 Mg Tablet PO 07/03/23 12:07 50 mg ONCE ONE Administration Medical Decision Making Medical Decision Making MDM Narrative: This is a 38-year-old female, with a history of asthma, presenting to the emergency department with complaints of shortness breast, cough since yesterday. She states that she tested positive for COVID yesterday. Also endorsing fevers at home. On arrival, vital signs within normal limits, lungs with coarse inspiratory and expiratory wheezes noted throughout all lung rashid, oxygen saturation 95% on room air. She has no chest pain. Plan: Chest x-ray, COVID swab, influenza swab, prednisone 50 p.o. Differential Diagnosis Differential Diagnoses: The differential diagnosis associated with the presentation includes COVID, upper respiratory infection, asthma exacerbation, pneumonia Admission/Observation Consideration of admission/observation: Escalation of care including admission/observation considered Patient would have been admitted to the hospital had her work up had any findings where hospital admission was appropriate and her clinical presentation warranted hospital admission. Lab Data Labs: Lab Results 07/03/23 Range/Units 12:56 COVID-19 (SCOTT) Negative (Negative) COVID-19 Clin Com See Note Influenza Type A (JONG) Positive A (Negative) Influenza Type B (JONG) Negative (Negative) Influenza A & B Note See Note Radiology Impression Discussion of test interpretation with radiology: I have reviewed the radiologist's reading. Radiologist Impression: EXAMINATION: XR CHEST CLINICAL INFORMATION: Dyspnea. Covid positive. COMPARISON: None available. TECHNIQUE: 2 views of the chest were obtained. FINDINGS: Cardiac silhouette is normal in size. The lungs are well aerated. There is no lobar consolidation. No pleural effusion or pneumothorax. No acute osseous abnormality. XR/XR chest 2V IMPRESSION: No acute pulmonary pathology. Discharge Plan Discharge Clinical Impression: COVID-19 Patient Disposition: Home, Self-Care Instructions: COVID-19 (Coronavirus Disease 2019) (ED) Additional Instructions: You tested positive for COVID in the department today. Continue using at home nebulizer treatments as needed for shortness of breath. I am also prescribing you prednisone, start this tomorrow as you already received a dose today. COVID-19 stands for coronavirus disease 2019. It is caused by a virus called SARS-CoV-2. The virus first appeared in late 2019 and quickly spread around the world. Many people only have mild cold symptoms. Some people have digestive problems, like nausea or diarrhea. There have also been some reports of rashes or other skin symptoms. For most people, symptoms get better within a few days to weeks.? Some people with COVID-19 continue to have some symptoms for weeks or months.? Drink plenty of fluids and get plenty of rest. Take Tylenol and Motrin as needed for symptoms. If any new or worsening symptoms occur including but not limited to chest pain or shortness breath, please return for re-evaluation. What should I do if I have symptoms or test positive?If you have a fever, cough, cold symptoms, or other symptoms of COVID-19, get tested. You can use the flowchart to figure out when to test and what to do based on the results If you?test positive: ? Self-isolate for at least 5 days, even if you feel well. Self-isolation means staying apart from other people, even the people you live with. The 5 days should start the day?after?you first noticed symptoms or got a positive test result. If you have a weak immune system or if you still have a fever, you might need to self-isolate for longer than 5 days. ?After self-isolating for 5 days, wear a mask around all other people for at least 5 more days. Some people use antigen tests to decide how long to keep wearing the mask. If you do this, you can stop wearing a mask once you test negative on 2 antigen tests done at least 2 days apart. ?If your symptoms are severe, or if you are at risk for severe illness,?call ?your doctor or nurse. They can tell you if you need to be seen. Depending on your situation, they might suggest treatment. Prescriptions: New prednisone 20 mg tablet 40 mg PO DAILY 4 Days Qty: 8 0RF No Action prednisone 50 mg tablet 50 mg PO DAILY 5 Days Qty: 5 0RF lidocaine [DermacinRx Lidocan] 5 % adhesive patch,medicated 1 patch topical DAILY Qty: 15 0RF Rx Instructions: leave on most painful area for up to 12 hrs Interventions: ED Discharge Assessment Last Done: 07/03/23 15:02 Discharge Date/Time: 07/03/23 15:02
--- NOTE | 2023-07-03 11:45 | ECG_ITS ---
Test Reason : CP,DYSPNEA Blood Pressure : / mmHG Vent. Rate : 077 BPM Atrial Rate : 077 BPM P-R Int : 138 ms QRS Dur : 072 ms QT Int : 348 ms P-R-T Axes : 059 050 027 degrees QTc Int : 393 ms Normal sinus rhythm Normal ECG When compared with ECG of 01-JAN-2022 16:54, No significant change was found Referred By: Carole Gu Electronically Signed By:SHELBI VALLEJO
[2023-07-03] MEDS: Albuterol Sulfate 2.5 MG, Albuterol/Iprat 2.5/0.5MG 3 ML 3 ML INHALE (12:13)
[2023-07-03 12:14] VITALS: PULSE 77; RESP 22; O2SAT 96
[2023-07-03 12:53] VITALS: BP 129/81; PULSE 104; RESP 18; O2SAT 99
[2023-07-03] MEDS: predniSONE 10 MG TABLET 50 MG PO (12:53)
[2023-07-03 13:29] LABS: IDNOW Serial# 08D9AD1C; Influenza A Positive (Negative)
[2023-07-03 13:30] LABS: Influenza B2 Negative (Negative)
[2023-07-03 13:31] LABS: COVID-19 Test Negative (Negative); IDNOW Serial# 152EDE1D
== END 2023-07-03 15:02 | disposition home or self-care (01) ==
PROVIDERS: Physician Assistant Medical; Emergency Provider Emergency Medicine
DX: J10.1 Influenza due to other identified influenza virus with other respiratory manifestations (principal); Z11.52 Encounter for screening for COVID-19
CPT/HCPCS: 71046; 87502; 87635; 93005; 94640; 99284

== ENCOUNTER → 2023-07-03 11:45 | Outpatient (BNV) | payer OTHER, SELFPAY | PROVIDERS: Emergency Provider Emergency Medicine; Visit Provider Internal Medicine | DX: R07.9 Chest pain, unspecified (principal) | CPT/HCPCS: 93010 ==

== ENCOUNTER 2023-07-12 09:39 | Outpatient (AMB) | payer OTHER, SELFPAY ==
--- NOTE | 2023-07-12 09:43 | MHC.OFFVIS ---
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 Patient reports that she has had ongoing shoulder pain for quite some time now. She denies injury. She has pain that increases with ROM. She had numbness and tingling in the finger tips of the left hand. 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 She tested positive for COVID-19 on 07/03/23, and was seen in the ED and given a course of Prednisone to take. She says she has had pain for some time in her shoulder, which is worse with ROM. She denies any falls or known injury. She reports having some numbness & tingling in her left hand fingertips. 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 Review of Systems Const All systems reviewed & are unremarkable except as noted in HPI and below Physical Exam Vital Signs: BMI result Body Mass Index 32.2 Const General: no acute distress, alert and awake Orientation/consciousness: patient oriented x3 HEENT Head: Yes normocephalic and Yes atraumatic Eyes EOM: EOMs intact bilaterally Resp Effort & Inspection: normal respiratory effort and able to speak in complete sentences Cardio Jugular venous distension: no JVD Skin General skin exam: turgor normal Rashes: no rashes Neuro General: patient oriented x3 Extrem Other: Full ROM left shoulder + Spurlings and 4/5 with triceps and numbness over lateral forearm Psych Appearance: grossly normal Affect: normal affect Attitude: cooperative Assessment & Plan Assessment & Plan (1) Cervical radiculopathy at C7: Code(s): M54.12 - Radiculopathy, cervical region Plan: Young and healthy F with numbness and burning left arm with weakness PT and MRI cervical spine Plan Prepared for Rafael Salter MD by Marquez Spencer, durable medical equipment technician, on 07/12/23 at 9:48 AM, EST. Orders: Orders PT Evaluation and Treatment Today M54.12 - Radiculopathy, cervical region MR cervical spine wo con Today M54.12 - Radiculopathy, cervical region Coding Level of Care Code New Pt Level 4 (31642) Diagnoses Cervical radiculopathy at C7 M54.12
[2023-07-12 09:55] VITALS: BMI 32.2
== END 2023-07-12 10:21 | disposition home or self-care (01) ==
LOC: HO.HOS 09:39
PROVIDERS: Visit Provider Orthopaedic Surgery
DX: M54.12 Radiculopathy, cervical region (principal); R20.0 Anesthesia of skin; M79.602 Pain in left arm
CPT/HCPCS: 99203

== ENCOUNTER → 2023-07-12 09:39 | Outpatient (BNVA) | payer OTHER, SELFPAY | PROVIDERS: Visit Provider Orthopaedic Surgery | DX: M54.12 Radiculopathy, cervical region (principal) | CPT/HCPCS: 99202 ==

== ENCOUNTER 2023-09-17 10:47 | Outpatient (AMB) | payer OTHER, SELFPAY ==
--- NOTE | 2023-09-17 11:16 | MHC.OFFVIS ---
Intake Vital Signs 09/17/23 11:25 Height 5 ft 2 in Weight 175 lb BMI 32.0 Handedness Left Intake Visit Reasons: OV-LT shoulder/ elbow pain-follow up Intake Note: Lavonne is a 38 year left hand dominate female who presents today for follow up of the left shoulder and elbow. An MRI was ordered at her last visit but patient states she canceled her MRI appointment due to improving symptoms. She denies numbness and tingling, her pain has since returned. Allergies diphenhydramine [From Benadryl] Allergy (Verified 09/17/23 11:28) Rash fosphenytoin Allergy (Verified 09/17/23 11:28) Unknown HPI OV-LT shoulder/ elbow pain-follow up HPI Details Lavonne is a 38 year left hand dominate female who presents today for follow up of the left shoulder and elbow. An MRI was ordered at her last visit but patient states she canceled her MRI appointment due to improving symptoms. She denies numbness and tingling, her pain has since returned. 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 I do think physical therapy might be beneficial for her. (2) Shoulder pain, left: Code(s): M25.512 - Pain in left shoulder Plan: There is ongoing left shoulder pain. Physical therapy is recommended. Orders: Orders PT Evaluation and Treatment Today M25.512 - Pain in left shoulder, M54.12 - Radiculopathy, cervical region Coding Level of Care Code Est Pt Level 4 (95415) Diagnoses Cervical radiculopathy at C7 M54.12 Shoulder pain, left M25.512
[2023-09-17 11:25] VITALS: BMI 32.0
== END 2023-09-17 16:10 | disposition home or self-care (01) ==
PROVIDERS: Visit Provider Orthopaedic Surgery
DX: M54.12 Radiculopathy, cervical region (principal); M25.512 Pain in left shoulder
CPT/HCPCS: 99213

== ENCOUNTER → 2023-09-17 10:47 | Outpatient (BNVA) | payer OTHER, SELFPAY | PROVIDERS: Visit Provider Orthopaedic Surgery | DX: M25.512 Pain in left shoulder (principal); M54.12 Radiculopathy, cervical region | CPT/HCPCS: 99212 ==

== ENCOUNTER 2024-04-21 11:03 | Outpatient (REF) | payer OTHER, SELFPAY ==
[2024-04-21 12:04] LABS: MANUAL DIFF FLAG NO
[2024-04-21 12:23] LABS: Basophils Percent Auto 0.5 % (0-2); Eosinophils Absolute Auto 0.4 X10*3/uL (0.0-0.4); Hematocrit 38.1 % (37.0-47.0); Hemoglobin 12.9 g/dl (12.0-16.0); Imm Gran Abs Auto 0.02 X10*3/uL (0.00-0.03); Imm Gran Pct Auto 0.2 % (0.0-0.4); Lymphocytes Percent Auto 23.4 % (20-40); Mean Corpuscular HGB Conc 33.9 g/dl (31.0-35.0); Mean Corpuscular Hemoglobin 29.4 pg (27.0-33.0); Mean Corpuscular Volume 86.8 fL (80.0-98.0); Mean Platelet Volume 10.4 fL (9.4-12.3); Monocytes Absolute Auto 0.5 X10*3/uL (0.1-1.2); Monocytes Percent Auto 6.1 % (2-11); Neutrophils Absolute Auto 5.4 x10*3/uL (2.0-8.3); Neutrophils Percent Auto 64.8 % (45-73); Platelet Count 252 X10*3/uL (160-400); Red Blood Count 4.39 X10*6/uL (4.20-5.50); Red Cell Distribution Width 13.6 % (11.0-16.0); White Blood Count 8.3 X10*3/uL (4.8-10.8)
[2024-04-21 13:13] LABS: Alanine Aminotransferase 30 U/L (0-31); Albumin Level 4.3 g/dL (3.5-5.0); Alkaline Phosphatase 70 U/L (39-117); Anion Gap 10 (12-20); Aspartate Amino Transferase 31 U/L (5-31); Bilirubin Total 0.4 mg/dL (0.0-1.0); Blood Urea Nitrogen 14 mg/dL (9-16); Calcium 9.6 mg/dL (8.4-10.2); Carbon Dioxide 27 mmol/L (22-29); Chloride 106 mmol/L (96-108); Cholesterol 184 mg/dL (<200); Estimated Glomerular Filt Rate > 60; Glucose Random 84 mg/dL (60-115); HDL Cholesterol 55 mg/dL (>40); LDL Cholesterol Calculated 107 mg/dL (<100); Potassium 4.1 mmol/L (3.3-5.1); Sodium 139 mmol/L (135-145); Triglycerides 112 mg/dL (<150)
[2024-04-21 13:32] LABS: Thyroid Stimulating Hormone 1.52 uIU/mL (0.32-4.0)
== END 2024-04-21 11:04 | disposition home or self-care (01) ==
LOC: HO.XRAY 11:03
PROVIDERS: PCP Internal Medicine; Visit Provider Internal Medicine
DX: Z00.00 Encounter for general adult medical examination without abnormal findings (principal); L64.8 Other androgenic alopecia; R53.83 Other fatigue; Z13.31 Encounter for screening for depression
CPT/HCPCS: 36415; 71046; 80053; 80061; 84443; 85025

== ENCOUNTER 2024-08-15 12:15 | Outpatient (REF) | payer OTHER, SELFPAY ==
--- OUTSIDE RECORDS SUMMARY | 2024-08-15 14:30 | XMS_ITS | Clinical Summary ---
Author Organization [facility] Address [id number] [place] [id number] Care Team Providers Care Entry Level Automotive Technician Name Role Phone Sabino Kaye MD Primary Care Provider [phone] Social History Tobacco Use Types Packs/Day Years Used Date Smoking Tobacco: Never Assessed Comments Unknown Sex and Gender Information Value Date Recorded Sex Assigned at Not on file Legal Sex Female 12:48 PM EST Gender Identity Not on file Sexual Orientation Not on file Plan of Treatment Health Maintenance Due Date Last Done Comments Breast Cancer Screening 1983 DTaP,Tdap,and Td Vaccines (1 - Tdap) 2002 Hepatitis B Vaccines (1 of 3 - 19+ 3-dose series) 2002 Cervical Cancer Screening: P ap Smear 2004 Depression Screening 05/16/2022 HIV Screening 05/16/2022 Hepatitis C Screening 05/16/2022 Social Influencers of Health Screening 05/16/2022 COVID-19 Vaccine (2023-2 5 season) 2024 Influenza Vaccine (#1) 2024 HIB Vaccines Aged Out No longer eligi ble based on patient's age to complete this topic HPV Vaccines Aged Out No longer eligi ble based on patient's age to complete this topic Hepatitis A Vaccines Aged Out No long er eligible based on patient's age to complete this topic IPV Vaccines Aged Out No longer eligi ble based on patient's age to complete this topic MMR Vaccines Aged Out No longer eligi ble based on patient's age to complete this topic Meningococcal ACWY Vaccine Aged Out N o longer eligible based on patient's age to complete this topic Meningococcal B Vacine Aged Out No lo nger eligible based on patient's age to complete this topic Pneumococcal Vaccine: Pediat rics (0 to 5 Years) and At-Risk Patients (6 to 64 Years) Aged Out No longer eligible b ased on patient's age to complete this topic RSV Immunization Patients Un naseem 20 months Aged Out No longer eligible b ased on patient's age to complete this topic Varicella Vaccines Aged Out No longer eligible based on patient's age to complete this topic Care Teams Entry Level Automotive Technician Relationship Specialty Start Date End Date Sabino Kaye MD [address] [place] [address] [id number] [place] [address] PCP - General Internal Medicine 08/09/17
--- OUTSIDE RECORDS SUMMARY | 2024-08-15 14:30 | XMS_ITS | Clinical Summary ---
Author Organization [facility] Address [address] [place] [address] Care Team Providers Care Diesel Service Journeyman Name Role Phone Radha Baker SERVICE PROMOTER SALESPERSON Primary Care Provider [phone] Source Comments PLEASE NOTE, if this patient is a minor, it may be UNLAWFUL to discuss sensitive information that is contained in these records (such as FAMILY PLANNING, MENTAL HEALTH or SUBSTANCE ABUSE) with the minor patient's parent or other person without the patient's specific authorization.[facility] Allergies No known active allergies Medications penicillin v potassium (VEETID) 500 mg tabletIndications :Strep throat Take 1 Tab by mouth 2 (two) times daily 20 Tab 07/30/2017 Active aziilhqv-KW-TKJ-F E-FA per tabletIndications :, unspecified gestational age Take 1 Tab by mouth once daily 30 Tab 2 07/30/2017 Active Social History Tobacco Use Types Packs/Day Years Used Date Smoking Tobacco: Never Assessed Social Connections Answer Date Recorded Social Connections and Isolation 0 02/10/2019 Financial Resource Strain Answer Date R ecorded Financial Resource Strain 0 2018 Stress Answer Date Recorded Stress 0 02/10/2019 Physical Activity Answer Date Recorded Physical Activity 0 02/10/2019 Food Insecurity Answer Date Recorded Food 0 02/10/2019 Transportation Needs Answer Date Record ed Transportation 0 02/10/2019 Housing Stability Answer Date Recorded Housing 0 02/10/2019 Safety and Environment Answer Date Johny rded Safety 0 02/10/2019 Utilities Answer Date Recorded Utilities 0 02/10/2019 Employment Answer Date Recorded Employment 0 02/10/2019 Comments No Sex and Gender Information Value Date Recorded Sex Assigned at Female 08/01/2017 2:41 PM PST Legal Sex Female 7:59 AM PST Gender Identity Female 08/01/2017 2:41 PM PST Sexual Orientation Straight 08/01/2017 2: 41 PM PST Last Filed Vital Signs Vital Sign Reading Time Taken Comments Blood Pressure 115/65 07/30/2017 2:26 PM EST Pulse 66 07/30/2017 2:26 PM EST Temperature 36.9 ??C (98.4 ??F) 07/30/2017 2:26 PM ES T Respiratory Rate 18 07/30/2017 2:26 PM EST Oxygen Saturation 100% 07/30/2017 2:26 PM EST Inhaled Oxygen Concentration - - Weight - - Height - - Body Mass Index - - Plan of Treatment Not on file Insurance [place] MEDICAID [facility] PLAN Member Subscriber Plan / Payer ( fective 2017-Present) Name:Zaida Bandasafiaaivs Relation to Subscriber:Self Name:Lavonne Banda Payer ID:[id number] Group ID:Not on file Type:Medicaid Address: [address] [address] [place] [address] Care Teams Diesel Service Journeyman Relationship Specialty Start Date End Date Radha Baker FNP [address] [place] [address] PCP - General Internal Medicine 07/17/18
[2024-08-18 09:33] LABS: HBS Num1 2.08 mIU/mL (0-7.99); HBc Num1 0.07 S/CO (0.00-0.79); Hepatitis B Core Antibody Nonreactive (Nonreactive); Hepatitis B Surface Antigen Negative (Negative); ~Hepatitis B Surface Antibody NONREACTIVE (Nonreactive)
== END 2024-08-15 12:16 | disposition home or self-care (01) ==
LOC: HO.LAB 12:15
PROVIDERS: PCP Internal Medicine; Visit Provider Internal Medicine
DX: Z00.00 Encounter for general adult medical examination without abnormal findings (principal); Z11.3 Encounter for screening for infections with a predominantly sexual mode of transmission; Z13.31 Encounter for screening for depression
CPT/HCPCS: 36415; 86704; 86706; 87340

== ENCOUNTER 2025-03-04 13:20 | Outpatient (REF) | payer OTHER, SELFPAY ==
[2025-03-04 13:30] LABS: MANUAL DIFF FLAG NO
[2025-03-04 15:06] LABS: Hematocrit 35.8 % (37.0-47.0); Hemoglobin 12.5 g/dl (12.0-16.0); Imm Gran Abs Auto 0.03 X10*3/uL (0.00-0.03); Imm Gran Pct Auto 0.3 % (0.0-0.4); Lymphocytes Absolute Auto 2.8 X10*3/uL (1.2-4.9); Mean Corpuscular HGB Conc 34.9 g/dl (31.0-35.0); Mean Corpuscular Hemoglobin 29.5 pg (27.0-33.0); Mean Corpuscular Volume 84.4 fL (80.0-98.0); NRBC Abs Auto 0.000 X10*3/uL (0.0-0.012); NRBC Pct Auto 0.0 /100WBC (0.0-0.2); Platelet Count 250 X10*3/uL (160-400); Red Blood Count 4.24 X10*6/uL (4.20-5.50); White Blood Count 10.3 X10*3/uL (4.8-10.8)
[2025-03-04 15:33] LABS: Alanine Aminotransferase 19 U/L (0-31); Albumin Level 4.5 g/dL (3.5-5.0); Alkaline Phosphatase 57 U/L (39-117); Anion Gap 12 (12-20); Aspartate Amino Transferase 23 U/L (5-31); Blood Urea Nitrogen 18 mg/dL (9-16); Calcium 9.3 mg/dL (8.4-10.2); Carbon Dioxide 25 mmol/L (22-29); Chloride 106 mmol/L (96-108); Estimated Glomerular Filt Rate > 60; Potassium 3.6 mmol/L (3.3-5.1); Sodium 139 mmol/L (135-145); Total Protein 6.9 g/dL (6.5-8.0)
--- OUTSIDE RECORDS SUMMARY | 2025-03-04 17:02 | XMS_ITS | Clinical Summary ---
Author Organization [facility] Address [address] [place] [address] Care Team Providers Care Lounge Car Attendant Name Role Phone Radha Baker MEDICAL RECORDS FIELD TECHNICIAN Primary Care Provider [phone] Source Comments PLEASE NOTE, if this patient [...] (two) times daily 20 Tab 07/30/2017 Active ikghtgcf-DU-KPV-F E-FA per tabletIndications :, unspecified gestational age ([facility]) Take 1 Tab by mouth once daily [...] 66 07/30/2017 2:26 PM EST Temperature 36.9 C (98.4 F) 07/30/2017 2:26 PM EST Respiratory Rate 18 07/30/2017 2:26 PM EST Oxygen Saturation 100% 07/30/2017 2:26 PM EST Inhaled Oxygen Concentration - - Weight - - Height - - Body Mass Index - - Plan of Treatment Not on file Insurance ID MEDICAID [facility] [employer] PLAN Member Subscriber Plan / Payer ( fective 2017-Present) Name:Zaida Bandasafiaavis Relation to Subscriber:Self Name:Lavonne Banda Payer ID:[id number] Group ID:Not on file Type:Medicaid Address: [address] [address] [place] [address] Care Teams Lounge Car Attendant Relationship Specialty Start Date End Date Radha Baker FNP [address] [place] [address] PCP - General Internal Medicine 07/17/18
--- OUTSIDE RECORDS SUMMARY | 2025-03-04 17:03 | XMS_ITS | Clinical Summary ---
Author Organization [facility] Address [id number] [place] [id number] Care Team Providers Care Double Spindle Shaper Operator Name Role Phone Sabino Kaye MD Primary Care Provider [phone] Social History Tobacco Use Types Packs/Day Years [...] Screening: P ap Smear 2004 Depression Screening 06/18/2024 COVID-19 Vaccine (2023-2 5 season) 2025 Influenza Vaccine (#1) 2025 HIB Vaccines Aged Out No longer eligi [...] age to complete this topic Meningococcal B Vaccine Aged Out No l onger eligible based on patient's age to complete this topic Pneumococcal Vaccine: Pediat rics (0 to 5 Years) and At-Risk Patients (6 to 49 Years) Aged Out No longer eligible b ased on patient's age to complete this topic RSV Immunization Patients Un naseem 20 months Aged Out No longer eligible b ased on patient's age to complete this topic Varicella Vaccines Aged Out No longer eligible based on patient's age to complete this topic Care Teams Double Spindle Shaper Operator Relationship Specialty Start Date End Date Sabino Kaye MD [address] [place] [address] [id number] [place] [address] PCP - General Internal Medicine 08/09/17
== END 2025-03-04 13:21 | disposition home or self-care (01) ==
LOC: HO.LAB 13:20
PROVIDERS: PCP Internal Medicine; Visit Provider Internal Medicine
DX: J45.909 Unspecified asthma, uncomplicated (principal); R53.83 Other fatigue; Z00.00 Encounter for general adult medical examination without abnormal findings; Z13.31 Encounter for screening for depression
CPT/HCPCS: 36415; 80053; 85025